=== PATIENT | male | born 1970 | race Caucasian/White ===

== ENCOUNTER → 2018-12-26 | Outpatient (CLI) | payer OTHER | LOC: COL.RAD 07:22 | DX: J34.89 Other specified disorders of nose and nasal sinuses (principal); R51 Headache; R53.82 Chronic fatigue, unspecified ==

== ENCOUNTER → 2019-01-24 | Outpatient (CLI) | payer OTHER | LOC: COL.RAD 07:23 | DX: M47.812 Spondylosis without myelopathy or radiculopathy, cervical region (principal) ==

== ENCOUNTER 2022-08-12 16:33 | Emergency (ER) | payer OTHER ==
[~2022-08-12] VITALS: Ht 182.9 cm; Wt 100.0 kg
[2022-08-12 17:02] VITALS: TEMP 98.4
[2022-08-12 18:39] VITALS: BP 132/91; PULSE 67
== END 2022-08-12 18:45 | disposition home or self-care (01) ==
LOC: COL.ER 16:33
DX: S61.212A Laceration without foreign body of right middle finger without damage to nail, initial encounter (principal); W26.8XXA Contact with other sharp object(s), not elsewhere classified, initial encounter; Y92.59 Other trade areas as the place of occurrence of the external cause; Y99.0 Civilian activity done for income or pay

== ENCOUNTER → 2022-08-13 | Outpatient (CLI) | payer OTHER | LOC: COL.RAD 09:37 | DX: R10.32 Left lower quadrant pain (principal) | CPT/HCPCS: Q9967 ==

== ENCOUNTER → 2022-10-01 | Outpatient (CLI) | payer OTHER | LOC: COL.RAD 09-28 07:30 | DX: I86.1 Scrotal varices (principal); Q55.1 Hypoplasia of testis and scrotum ==